=== PATIENT | male | born 1965 | race African-American/Black ===

== ENCOUNTER 2016-07-06 12:33 | Emergency (ER) | payer BC ==
[~2016-07-06] VITALS: Ht 167.6 cm; Wt 101.2 kg
[~2016-07-06 12:33] MED LIST: DICY10CA53 PO; PROM25TA10 PO
[2016-07-06 13:50] VITALS: BP 143/92
--- NOTE | 2016-07-06 14:13 | PHYS DOC ---
Past Medical History Past Medical History: No Pertinent History Past Surgical History: No Surgical History Alcohol Use: Heavy Drug Use: Marijuana Adult General Chief Complaint Chief Complaint: SORE THROAT [facility] HPI Patient is a 51 year old male who presents with sore throat and ear pain for two days. Denies fever, cough, congestion, difficulty swallowing or opening mouth. Denies known illness exposure. Review of Systems Review of Systems Constitutional: Denies fever or chills Eyes: Denies change in visual acuity, redness, or eye pain HENT: Denies nasal congestion. Sore throat 2 days. Respiratory: Denies cough or shortness of breath Cardiovascular: No additional information not addressed in HPI GI: Denies abdominal pain, nausea, vomiting, bloody stools or diarrhea : Denies dysuria or hematuria Musculoskeletal: Denies back pain or joint pain Integument: Denies rash or skin lesions Neurologic: Denies headache, focal weakness or sensory changes Endocrine: Denies polyuria or polydipsia Current Medications Current Medications Current Medications Medications (Trade) Dose Ordered Sig/Radha Start Time Stop Time Status Last Admin Dose Admin Ibuprofen (Motrin) 600 mg 1X ONCE 07/06/16 14:30 07/06/16 14:31 DC 07/06/16 14:20 600 MG Info (Do NOT chart on this entry -- for MONITORING) 1 each PRN DAILY PRN 07/06/16 14:45 07/06/16 16:01 DC Iohexol (Omnipaque 300 Mg/ml) 75 ml 1X ONCE 07/06/16 14:45 07/06/16 14:46 DC 07/06/16 15:02 75 ML Penicillin G Benzathine (Bicillin L-A) 1,200,000 unit 1X ONCE 07/06/16 15:45 07/06/16 15:47 DC 07/06/16 15:52 1,200,000 UNIT Allergies Allergies Allergies Coded Allergies Type Severity Reaction Last Updated Verified No Known Drug Allergies 03/18/16 No Physical Exam Physical Exam Constitutional: Well developed, well nourished, no acute distress, non-toxic appearance. HENT: Normocephalic, atraumatic, bilateral external ears normal, oropharynx moist, no oral exudates, nose normal. Eyes: PERRLA, EOMI, conjunctiva normal, no discharge. Neck: Normal range of motion, no stridor. Moderate swelling to left submandibular area. No erythema or cellulitis present. Tender to touch Cardiovascular:Heart rate regular rhythm, no murmur Lungs & Thorax: Bilateral breath sounds clear to auscultation Abdomen: Bowel sounds normal, soft, no tenderness, no masses, no pulsatile masses. Skin: Warm, dry, no erythema, no rash. Back: No tenderness, no CVA tenderness. Extremities: No tenderness, no cyanosis, no clubbing, ROM intact, no edema. Neurologic: Alert and oriented X 3, normal motor function, normal sensory function, no focal deficits noted. Psychologic: Affect normal, judgement normal, mood normal. [] Current Patient Data Vital Signs Vital Signs Date Time Temp Pulse Resp B/P Pulse Ox O2 Delivery O2 Flow Rate FiO2 07/06/16 13:50 98.6 63 18 98 Room Air 98.6 Lab Values Laboratory Tests Test 07/06/16 14:14 07/06/16 14:49 Group A Streptococcus Rapid Negative (NEGATIVE) POC Hemoglobin 15.6g/dL (14-18) POC Hematocrit 46% (37-52) POC Sodium 142mmol/L (135-145) POC Potassium 4.6mmol/L (3.5-5.0) POC Chloride 102mmol/L (98-110) POC Total CO2 30mmol/L (23-32) Anion Gap 15mmol/L (6-14) H POC Blood Urea Nitrogen 5mg/dL (8-26) L POC Creatinine 1.0mg/dL (0.5-1.4) Glucose Level 93mg/dL (70-99) POC Ionized Calcium (Caio) 1.13mmol/L (1.13-1.32) Laboratory Tests 07/06/16 14:49 EKG EKG [] Radiology/Procedures Radiology/Procedures [] Impressions: 1. Cervical adenopathy 2. Pharyngitis Course & Med Decision Making Course & Med Decision Making Pertinent Labs and Imaging studies reviewed. (See chart for details) [] Dragon Disclaimer Dragon Disclaimer This electronic medical record was generated, in whole or in part, using a voice recognition dictation system. Departure Departure Impression: Primary Impression: Cervical lymphadenopathy Additional Impression: Pharyngitis, acute Disposition: 01 HOME, SELF-CARE Condition: STABLE Referrals: UNKNOWN PCP NAME (PCP) Patient Instructions: Cervical Adenitis, Viral and Bacterial Pharyngitis, Easy- to-Read Additional Instructions: Continue the Ibuprofen at home for comfort. Follow up with primary doctor in 1- 2 days. return if any problems or concerns Problem Qualifiers ANGELICA GROSS APRN Jul 06, 2016 14:13
[2016-07-06] MEDS ORDERED: IBUPROFEN 600 MG TABLET. PO ONE (14:30)
[2016-07-06 14:40] LABS: NEGATIVE OBC STREP NEG; POSITIVE OBC STREP POS
[2016-07-06] MEDS ORDERED: IOHEXOL 300 MG/ML 75 ML VIAL IV ONE (14:45)
[2016-07-06] MEDS ORDERED: CONTRAST GIVEN MC PRN (14:45)
[2016-07-06 14:52] LABS: POTASSIUM ISTAT 4.6 mmol/L (3.5-5.0)
--- NOTE | 2016-07-06 15:39 | RAD ---
CT of the neck with contrast, 07/06/2016: History: Left neck swelling Multidetector CT imaging was performed following an IV bolus injection of iodinated contrast material. There is mild asymmetric soft tissue swelling in the left tonsillar region. No focal fluid collection is seen to suggest abscess. This soft tissue thickening extends inferiorly with decreased aeration of the left piriform sinus compared to the right. The epiglottis is unremarkable. The true vocal cords are symmetric. The subglottic trachea is unremarkable. The thyroid gland shows no abnormality. The parotid and submandibular glands are unremarkable. There is a mildly enlarged cervical lymph node near the angle of the mandible on the left measuring 16 mm. Several other smaller cervical lymph nodes are present on the left. The paranasal sinuses are clear. There are mild scattered degenerative changes in the cervical spine. C6 and C7 vertebrae are fused. IMPRESSION: 1. Soft tissue thickening in the left tonsillar region most likely on an inflammatory basis. A neoplastic etiology cannot be excluded. No abscess is identified. 2. Mild left cervical adenopathy. PQRS Compliance Statement: One or more of the following individualized dose reduction techniques were utilized for this examination: 1. Automated exposure control 2. Adjustment of the mA and/or kV according to patient size 3. Use of iterative reconstruction technique
[2016-07-06] MEDS ORDERED: PENICILLIN G BENZATHINE LA 1,200,000 UNIT/2 ML DISP.SYRIN. IM ONE (15:45)
== END 2016-07-06 15:57 | disposition home or self-care (01) ==
LOC: ER 12:33
DX: J02.9 Acute pharyngitis, unspecified (principal); R59.1 Generalized enlarged lymph nodes; F10.20 Alcohol dependence, uncomplicated; F12.10 Cannabis abuse, uncomplicated
CPT/HCPCS: 70491; 80047; 87070; 87880; 96372; 99285; J0561; Q9967

== ENCOUNTER 2017-01-25 10:20 | Emergency (ER) | payer BC ==
[~2017-01-25] VITALS: Ht 170.2 cm; Wt 99.8 kg
[2017-01-25 10:50] VITALS: BP 134/79
--- NOTE | 2017-01-25 11:35 | PHYS DOC ---
Past Medical History Past Medical History: Other Additional Past Medical Histor: HEMORRHOIDS Past Surgical History: Other Additional Past Surgical Histo: HEMORRHOIDECTOMY Alcohol Use: Heavy Drug Use: Marijuana Adult General Chief Complaint Chief Complaint: HEMORRHOIDS HPI HPI Patient is a 52 year old male presents to the emergency department stating that he's been having some rectal bleeding. Patient states that he has had a history of hemorrhoids however he has been having increased bleeding within the last 2 days. Significant other at the bedside states that he has saturated 2 washcloths within the last 3 hours. He denies any lightheadedness dizziness. He does state he's had a hemorrhoidectomy in the past. He states he is also had 2 colonoscopies in the past. Patient denies straining of any bowel movements. Review of Systems Review of Systems Constitutional: Denies fever or chills [] Eyes: Denies change in visual acuity, redness, or eye pain [] HENT: Denies nasal congestion or sore throat [] Respiratory: Denies cough or shortness of breath [] Cardiovascular: No additional information not addressed in HPI [] GI: Denies abdominal pain, nausea, vomiting, bloody stools or diarrhea. Complaint of rectal bleeding : Denies dysuria or hematuria [] Musculoskeletal: Denies back pain or joint pain [] Integument: Denies rash or skin lesions [] Neurologic: Denies headache, focal weakness or sensory changes [] Endocrine: Denies polyuria or polydipsia [] Allergies Allergies Allergies Coded Allergies Type Severity Reaction Last Updated Verified No Known Drug Allergies 03/18/16 No Physical Exam Physical Exam Constitutional: Well developed, well nourished, no acute distress, non-toxic appearance. [] HENT: Normocephalic, atraumatic, bilateral external ears normal, oropharynx moist, no oral exudates, nose normal. [] Eyes: PERRLA, EOMI, conjunctiva normal, no discharge. [] Neck: Normal range of motion, no tenderness, supple, no stridor. [] Cardiovascular:Heart rate regular rhythm, no murmur [] Lungs & Thorax: Bilateral breath sounds clear to auscultation [] Abdomen: Bowel sounds hypoactive, soft, no tenderness, no masses, no pulsatile masses. [] Skin: Warm, dry, no erythema, no rash. [] Back: No tenderness Extremities: No tenderness, no cyanosis, no clubbing, ROM intact, no edema. [] Neurologic: Alert and oriented X 3, normal motor function, normal sensory function, no focal deficits noted. [] Psychologic: Affect normal, judgement normal, mood normal. [] Current Patient Data Vital Signs Vital Signs Date Time Temp Pulse Resp B/P (MAP) Pulse Ox O2 Delivery O2 Flow Rate FiO2 01/25/17 10:50 98.3 62 18 98 Room Air 98.3 Lab Values Laboratory Tests Test 01/25/17 11:30 01/25/17 11:45 Stool Occult Blood Positive (NEG) White Blood Count 5.0 x10^3/uL (4.0-11.0) Red Blood Count 5.20 x10^6/uL (4.30-5.70) Hemoglobin 15.4 g/dL (13.0-17.5) Hematocrit 45.8 % (39.0-53.0) Mean Corpuscular Volume 88 fL (79-100) Mean Corpuscular Hemoglobin 30 pg (25-35) Mean Corpuscular Hemoglobin Concent 34 g/dL (31-37) Red Cell Distribution Width 15.2 % (11.5-14.5) H Platelet Count 176 x10^3/uL (140-400) Neutrophils (%) (Auto) 62 % (31-73) Lymphocytes (%) (Auto) 27 % (24-48) Monocytes (%) (Auto) 9 % (0-9) Eosinophils (%) (Auto) 2 % (0-3) Basophils (%) (Auto) 1 % (0-3) Neutrophils # (Auto) 3.1 x10^3uL (1.8-7.7) Lymphocytes # (Auto) 1.3 x10^3/uL (1.0-4.8) Monocytes # (Auto) 0.4 x10^3/uL (0.0-1.1) Eosinophils # (Auto) 0.1 x10^3/uL (0.0-0.7) Basophils # (Auto) 0.0 x10^3/uL (0.0-0.2) Laboratory Tests 01/25/17 11:45 EKG EKG [] Radiology/Procedures Radiology/Procedures [] Course & Med Decision Making Course & Med Decision Making Pertinent Labs and Imaging studies reviewed. (See chart for details) Rectal exam was completed with BONITA Robertson at bedside. No fistula noted, no internal hemorrhoids noted. No external hemorrhoids noted. No bright red bleeding noted. fecal occult was positive. CBC within normal limits. Patient will be discharged home with recommendations to follow-up with a GI physician, Dr. Romeo. There will be provided with the name and number. Recommended him to follow up with the GI physician within the next week. Signs and symptoms to return back to emergency prior has been provided. Patient agrees with discharge instructions, treatment regimens and follow-up recommendations. All questions and concerns been answered at the patient's bedside. [] Dragon Disclaimer Dragon Disclaimer This electronic medical record was generated, in whole or in part, using a voice recognition dictation system. Departure Departure Impression: Primary Impression: Rectal bleed Disposition: 01 HOME, SELF-CARE Condition: STABLE Referrals: NO PCP (PCP) EVGENY BLAEK MD Patient Instructions: Rectal Bleeding, [id number] Additional Instructions: Activity as tolerated. Medications as prescribed. Follow-up with GI physician Dr. Blake. Return back to emergency department for signs and symptoms that become worse. JULY JOHNSON DIRECTOR [facility] Jan 25, 2017 11:34
[2017-01-25 12:00] LABS: BASO % 1 % (0-3); EOS % 2 % (0-3); HEMATOCRIT 45.8 % (39.0-53.0); HEMOGLOBIN 15.4 g/dL (13.0-17.5); LYMPH # 1.3 x10^3/uL (1.0-4.8); LYMPH % 27 % (24-48); MEAN CORPUSCULAR HEMOGLOBIN 30 pg (25-35); MEAN CORPUSCULAR HGB CONC 34 g/dL (31-37); MEAN CORPUSCULAR VOLUME 88 fL (79-100); MONO % 9 % (0-9); NEUT % 62 % (31-73); PLATELET COUNT 176 x10^3/uL (140-400); RED CELL DISTRIBUTION WIDTH 15.2 % (11.5-14.5)
[2017-01-25 12:13] LABS: NEG OBC FOB NEG; POS OBC FOB POS
== END 2017-01-25 12:47 | disposition home or self-care (01) ==
LOC: ER 10:20
DX: K62.5 Hemorrhage of anus and rectum (principal); F10.10 Alcohol abuse, uncomplicated; Z98.890 Other specified postprocedural states
CPT/HCPCS: 36415; 82274; 85025; 99284

== ENCOUNTER 2017-02-18 22:48 | Emergency (ER) | payer BC ==
[~2017-02-18] VITALS: Ht 170.2 cm; Wt 102.1 kg
[2017-02-18 23:14] VITALS: BP 157/99
[2017-02-18] MEDS ORDERED: PRED50TA PO (23:33)
[2017-02-18] MEDS ORDERED: AMOX875T PO (23:33)
--- NOTE | 2017-02-18 23:33 | PHYS DOC ---
Past Medical History Past Medical History: Other Additional Past Medical Histor: HEMORRHOIDS Past Surgical History: Other Additional Past Surgical Histo: HEMORRHOIDECTOMY Alcohol Use: Heavy Drug Use: Marijuana Adult General Chief Complaint Chief Complaint: SORE THROAT HPI HPI Patient is a 52 year old male who presents with sore throat and bilateral ear pain that began yesterday. Patient denies any fever. Review of Systems Review of Systems Constitutional: Denies fever or chills [] Eyes: Denies change in visual acuity, redness, or eye pain [] HENT: Sore throat and bilateral ear pain. Denies nasal congestion Respiratory: Denies cough or shortness of breath [] Cardiovascular: No additional information not addressed in HPI [] GI: Denies abdominal pain, nausea, vomiting, bloody stools or diarrhea [] : Denies dysuria or hematuria [] Musculoskeletal: Denies back pain or joint pain [] Integument: Denies rash or skin lesions [] Neurologic: Denies headache, focal weakness or sensory changes [] Allergies Allergies Allergies Coded Allergies Type Severity Reaction Last Updated Verified No Known Drug Allergies 03/18/16 No Physical Exam Physical Exam Constitutional: Well developed, well nourished, no acute distress, non-toxic appearance. [] HENT: Normocephalic, atraumatic, bilateral external ears normal, oropharynx moist, no oral exudates, nose normal. [] Posterior pharynx with mild erythema no exudate. +2 anterior cervical adenopathy. Bilateral TM are mildly injected left worse than right. Eyes: PERRLA, EOMI, conjunctiva normal, no discharge. Neck: Normal range of motion, no tenderness, supple, no stridor. [] Cardiovascular:Heart rate regular rhythm, no murmur [] Lungs & Thorax: Bilateral breath sounds clear to auscultation [] Abdomen: Bowel sounds normal, soft, no tenderness, no masses, no pulsatile masses. [] Skin: Warm, dry, no erythema, no rash. [] Back: No tenderness, no CVA tenderness. [] Extremities: No tenderness, no cyanosis, no clubbing, ROM intact, no edema. [] Neurologic: Alert and oriented X 3, normal motor function, normal sensory function, no focal deficits noted. [] Psychologic: Affect normal, judgement normal, mood normal. [] EKG EKG [] Radiology/Procedures Radiology/Procedures [] Course & Med Decision Making Course & Med Decision Making Pertinent Labs and Imaging studies reviewed. (See chart for details) Patient has bilateral otitis media and pharyngitis. Discharged with amoxicillin for 10 days. Discharged with lidocaine viscous and prednisone for 5 days. Follow -up with PCP in 1-2 weeks. Tylenol/ Motrin also recommended as well as saltwater gargles. Dragon Disclaimer Dragon Disclaimer This electronic medical record was generated, in whole or in part, using a voice recognition dictation system. Departure Departure Impression: Primary Impression: Otitis media Additional Impression: Pharyngitis, acute Disposition: HOME, SELF-CARE Condition: STABLE Referrals: NO PCP (PCP) follow up with your doctor in 1-2 weeks Patient Instructions: Otitis Media, Adult, Viral and Bacterial Pharyngitis Additional Instructions: You were seen for ear infection and sore throat. Ensure you complete your antibiotics. Take the rest of the prescribed medicines as ordered. Take Tylenol every 4 hours and Motrin every 6 hours as needed for pain or fever. Use saltwater gargles they do help with sore throat. Follow-up with your doctor in 1 -2 weeks. Scripts Prednisone (PREDNISONE) 50 Mg Tablet 1 TAB PO DAILY, #5 TAB Prov: SARITA TRUJILLO APRN 02/18/17 Amoxicillin (AMOXICILLIN) 875 Mg Tablet 1 TAB PO BID, #20 TAB Prov: SARITA TRUJILLO APRN 02/18/17 Problem Qualifiers Primary Impression: Otitis media Otitis media type: other nonsuppurative Chronicity: acute Laterality: bilateral Recurrence: not specified as recurrent Qualified Codes: H65.193 - Other acute nonsuppurative otitis media, bilateral Additional Impression: Pharyngitis, acute Pharyngitis/tonsillitis etiology: unspecified etiology Qualified Codes: J02.9 - Acute pharyngitis, unspecified SARITA TRUJILLO APRN Feb 18, 2017 23:33
[2017-02-19 05:19] LABS: NEGATIVE OBC STREP NEG; POSITIVE OBC STREP POS
== END 2017-02-18 23:44 | disposition home or self-care (01) ==
LOC: ER 22:48
DX: H65.193 Other acute nonsuppurative otitis media, bilateral (principal); J02.9 Acute pharyngitis, unspecified; F10.10 Alcohol abuse, uncomplicated
CPT/HCPCS: 87070; 87880; 99283